=== PATIENT | male | born 1960 | race Caucasian/White ===

== ENCOUNTER 2016-09-07 11:35 | Emergency (ER) | payer OTHER ==
[~2016-09-07] VITALS: Ht 170.2 cm; Wt 105.0 kg
[~2016-09-07 11:35] MED LIST: ALBUAER3 INH; AMBI10TA PO; AMLO5TAB2 PO; ASPI81CH CHEW; ATOR20TA15 PO; HUMU70IN SQ; LISI10TA3 PO; LYRI150C PO; MEDR4PAK PO; PERC10TA27 PO; UMEC1AER INH; ZOFR4TAB PO
[2016-09-07 11:45] VITALS: BP 161/106; PULSE 92; RESP 20; TEMP 97.9; O2SAT 99
[2016-09-07] MEDS ORDERED: ONDANSETRON HCL 4 MG/2 ML VIAL ONE (12:21)
[2016-09-07] MEDS ORDERED: ONDANSETRON HCL 4 MG/2 ML VIAL IV PUSH ONE (12:30)
[2016-09-07] MEDS ORDERED: VIST50CA PO (12:35)
[2016-09-07] MEDS ORDERED: PRED20 PO (12:35)
[2016-09-07] MEDS ORDERED: EPIP0.3I SQ (12:35)
[2016-09-07] MEDS ORDERED: INSULIN HUMAN REGULAR 1,000 UNITS/10 ML VIAL SQ ONE (12:45)
[2016-09-07] MEDS ORDERED: FAMOTIDINE 20 MG/2 ML VIAL IV PUSH ONE (13:15)
--- NOTE | 2016-09-07 13:18 | PD ---
HPI Chief Complaint: Allergic/Adverse Reaction Time Seen by Provider: 13:12 Travel History International Travel<30 days: No Contact w/Intl Traveler<30days: No Traveled to known affect area: No History of Present Illness HPI 55-year-old male that presents to the ED for evaluation of allergic reaction. Patient comes here [facility] for evaluation of this. The patient his been ongoing for 3 days. Per patient he believes is related to use of off Brand Febreeze sprayer from [employer]. Per patient he spent is 3 days ago and he immediately noticed that he started having a itchy rash and swelling on his face. Per patient his been ongoing for 3 days and his been taking Benadryl with some minor relief. Per patient today his mother called the ambulance because his symptoms do not improve and he had more swelling. She states that he had a tingling in his throat. Patient was given epinephrine, Solu-Medrol, albuterol as well as Benadryl IV with resolution of most of his symptoms. Per patient he feels improved when I went to evaluate him. Per patient he still has a little bit of itching a rash but this all appears to be improving. He hasn't only to Xylocaine. He denies any recent changes in medications. No new soaps or clothes. No other new foods. No recent travel. No other injuries other medical complaints at this time. He is a diabetic and he does tell me that he did not use his insulin today. 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) Tetanus Vaccination: > 5 Years Influenza Vaccination: No ?: Not Past Surgical History Coronary Artery Bypass Graft: No Social History Alcohol Use: No Tobacco Use: No Substance Use: No Allergies-Medications (Allergen,Severity, Reaction): Coded Allergies: Xylocaine (Verified Allergy, Severe, Seizures, 03/22/16) Reported Meds & Prescriptions Reported Meds & Active Scripts Active Vistaril (Hydroxyzine Pamoate) 50 Mg Cap 50 Mg PO QID PRN Epipen 2-Delvin Inj (Epinephrine) 0.3 Mg/0.3 Ml Pfpen 0.3 Mg SQ ONCE PRN Prednisone 20 Mg Tab 20 Mg PO BID Zofran (Ondansetron HCl) 4 Mg Tab 4 Mg PO Q8HR PRN Medrol Dosepak (Methylprednisolone) 4 Mg Dspk 4 Mg PO DIRECTED Per Pharmacist direction Amlodipine (Amlodipine Besylate) 5 Mg Tab 5 Mg PO DAILY Aspirin 81 Mg Chew 81 Mg CHEW ONCE Reported Ambien (Zolpidem Tartrate) 10 Mg Tab 10 Mg PO HS PRN Atorvastatin (Atorvastatin Calcium) 20 Mg Tab 20 Mg PO DAILY Proair Hfa 8.5 GM Inh (Albuterol Sulfate) 90 Mcg/Act Aer 1-2 Puff INH Q4-6H PRN Anoro Ellipta Inh (Umeclidinium/Vilanterol) 62.5-25 Mcg/Act Aero 1 Puff INH DAILY Humulin 70-30 Inj (Insulin NPH Isophane-Reg (Human) 70-30 Inj) 1,000 Unit/10 Ml Vial 15 Units SQ DAILY IN THE PM Humulin 70-30 Inj (Insulin NPH Isophane-Reg (Human) 70-30 Inj) 1,000 Unit/10 Ml Vial 20 Units SQ DAILY IN THE AM Lisinopril 10 Mg Tab 10 Mg PO DAILY Percocet (Oxycodone-Acetaminophen) 10-325 mg Tab 1 Tab PO TID Lyrica (Pregabalin) 150 Mg Cap 150 Mg PO BID Review of Systems Except as stated in HPI: all other systems reviewed are Neg Physical Exam Narrative GENERAL: SKIN: Warm and dry. HEAD: Atraumatic. Normocephalic. EYES: Pupils equal and round 4 mm reactive to light and accommodation. No scleral icterus. No injection or drainage. ENT: No nasal bleeding or discharge. Mucous membranes pink and moist. Tongue is midline. No uvula deviation. No edema noted inside the mouth. NECK: Trachea midline. No JVD. CARDIOVASCULAR: Regular rate and rhythm. No murmurs, S3, S4. RESPIRATORY: No accessory muscle use. Clear to auscultation. Breath sounds equal bilaterally. GASTROINTESTINAL: Abdomen soft, non-tender, nondistended. Hepatic and splenic margins not palpable. MUSCULOSKELETAL: Extremities without clubbing, cyanosis, or edema. No obvious deformities. Full range of motion of the upper and lower extremities bilaterally. 2+ pulses bilaterally. NEUROLOGICAL: Awake and alert. No obvious cranial nerve deficits. Motor grossly within normal limits. Five out of 5 muscle strength in the arms and legs. Normal speech. PSYCHIATRIC: Appropriate mood and affect; insight and judgment normal. Data Data Last Documented VS Vital Signs Date Time Temp Pulse Resp B/P Pulse Ox O2 Delivery O2 Flow Rate FiO2 09/07/16 12:08 20 98 Room Air 09/07/16 11:45 97.9 92 161/106 Orders Ondansetron Inj (Zofran Inj) (09/07/16 12:30) Ondansetron Inj (Zofran Inj) (09/07/16 12:21) Insulin Human Regular Inj (Novolin R Inj (09/07/16 12:45) Famotidine Inj (Pepcid Inj) (09/07/16 13:15) Complete Blood Count With Diff (09/07/16 13:18) Basic Metabolic Panel (Bmp) (09/07/16 13:18) Magnesium (Mg) (09/07/16 13:18) Labs Laboratory Tests Test 09/07/16 13:20 White Blood Count 13.3 TH/MM3 Red Blood Count 5.14 MIL/MM3 Hemoglobin 14.8 GM/DL Hematocrit 46.3 % Mean Corpuscular Volume 90.0 FL Mean Corpuscular Hemoglobin 28.7 PG Mean Corpuscular Hemoglobin 31.9 % Concent Red Cell Distribution Width 13.3 % Platelet Count 256 TH/MM3 Mean Platelet Volume 9.6 FL Neutrophils (%) (Auto) 71.3 % Lymphocytes (%) (Auto) 20.2 % Monocytes (%) (Auto) 6.6 % Eosinophils (%) (Auto) 1.3 % Basophils (%) (Auto) 0.6 % Neutrophils # (Auto) 9.5 TH/MM3 Lymphocytes # (Auto) 2.7 TH/MM3 Monocytes # (Auto) 0.9 TH/MM3 Eosinophils # (Auto) 0.2 TH/MM3 Basophils # (Auto) 0.1 TH/MM3 CBC Comment DIFF FINAL Differential Comment Sodium Level 139 MEQ/L Potassium Level 4.3 MEQ/L Chloride Level 105 MEQ/L Carbon Dioxide Level 23.5 MEQ/L Anion Gap 11 MEQ/L Blood Urea Nitrogen 11 MG/DL Creatinine 1.24 MG/DL Estimat Glomerular Filtration 61 ML/MIN Rate Random Glucose 261 MG/DL Calcium Level 9.4 MG/DL Magnesium Level 1.7 MG/DL MDM Medical Decision Making Medical Screen Exam Complete: Yes Emergency Medical Condition: Yes Medical Record Reviewed: Yes Interpretation(s) CBC Diagram 09/07/16 13:20 Differential Diagnosis Allergic reaction versus anaphylaxis versus allergic dermatitis versus anxiety Narrative Course 55-year-old male that presents to the ED for evaluation of possible allergic reaction. Patient was properly examined and was found to have signs and symptoms of unclear etiology. Patient does appear to have had an allergic reaction. On my evaluation patient's improve and swelling that he was describing as well as most of the rash appears to be gone although he does appear to have some rash still. Patient is diabetic and his sugar was found to be 270 so he was given insulin here. Patient was told that he will be monitored for about an hour. Around 1310 the patient was reevaluated and he states that he is having some swelling in his face and he is starting to have some itching on his arms and legs. On my examination patient does not appear to have any new hives although his face does appear to be slightly swollen compared to my first examination. Patient was given Pepcid. 30 minutes later patient feels improved and wants to go home. My attending Dr. Guthrie evaluated the patient and agrees the patient can be safely discharged home. Patient will be discharged home with prescriptions for prednisone, EpiPen, Vistaril. Told to follow up with PCP. See ED worsening symptoms. All questions were answered to the best of my ability. Diagnosis Primary Impression: Allergic reaction to chemical substance Qualified Code: T65.91XA - Allergic reaction to chemical substance, accidental or unintentional, initial encounter Patient Instructions: General Instructions Additional Instructions: Take medications as prescribed. Only use EpiPen if he develops severe swelling , shortness of breath or severe allergic reaction. See ED for any worsening symptoms. Stay away from the Febreeze. Med/Other Pt SpecificInfo: Prescription(s) given Scripts Hydroxyzine Pamoate (Vistaril)50 Mg Cap50 Mg PO QID PRN (ITCHING) #20 CAP Ref 0 Prov:Rome Guthrie MD 09/07/16 Epinephrine Inj (Epipen 2-Delvin Inj)0.3 Mg/0.3 Ml Pfpen0.3 Mg SQ ONCE PRN ( ALLERGIC REACTION) #1 PACK Ref 0 Prov:Rome Guthrie MD 09/07/16 Prednisone 20 Mg Tab20 Mg PO BID #10 TAB Prov:Rome Guthrie MD 09/07/16 Disposition: 01 DISCHARGE HOME Condition: Stable Levy Boyce Sep 07, 2016 13:17
[2016-09-07 13:51] LABS: AUTOMATED NEUTROPHIL # 9.5 TH/MM3 (1.8-7.7); BASOPHIL # 0.1 TH/MM3 (0-0.2); BASOPHIL % 0.6 % (0.0-2.0); EOSINOPHIL # 0.2 TH/MM3 (0-0.4); EOSINOPHIL % 1.3 % (0.0-4.0); HEMATOCRIT 46.3 % (39.0-51.0); HEMO FLAGS DIFF FINAL; LYMPH % 20.2 % (9.0-44.0); LYMPHOCYTE # 2.7 TH/MM3 (1.0-4.8); MEAN CORPUSCULAR HEMOGLOBIN 28.7 PG (27.0-34.0); MEAN CORPUSCULAR HGB CONC 31.9 % (32.0-36.0); MONO % 6.6 % (0.0-8.0); NEUT % 71.3 % (16.0-70.0); PLATELET COUNT 256 TH/MM3 (150-450); RED BLOOD COUNT 5.14 MIL/MM3 (4.50-5.90); RED CELL DISTRIBUTION WIDTH 13.3 % (11.6-17.2); WHITE BLOOD COUNT 13.3 TH/MM3 (4.0-11.0)
[2016-09-07 14:13] LABS: BICARBONATE 23.5 MEQ/L (21.0-32.0); MAGNESIUM 1.7 MG/DL (1.5-2.5); POTASSIUM 4.3 MEQ/L (3.5-5.1)
--- NOTE | 2016-09-07 14:19 | PD ---
Data Data Last Documented VS Vital Signs Date Time Temp Pulse Resp B/P Pulse Ox O2 Delivery O2 Flow Rate FiO2 09/07/16 14:27 85 18 154/88 98 09/07/16 12:08 Room Air 09/07/16 11:45 97.9 Orders Ondansetron Inj (Zofran Inj) (09/07/16 12:30) Ondansetron Inj (Zofran Inj) (09/07/16 12:21) Insulin Human Regular Inj (Novolin R Inj (09/07/16 12:45) Famotidine Inj (Pepcid Inj) (09/07/16 13:15) Complete Blood Count With Diff (09/07/16 13:18) Basic Metabolic Panel (Bmp) (09/07/16 13:18) Magnesium (Mg) (09/07/16 13:18) Labs Laboratory Tests Test 09/07/16 13:20 White Blood Count 13.3 TH/MM3 Red Blood Count 5.14 MIL/MM3 Hemoglobin 14.8 GM/DL Hematocrit 46.3 % Mean Corpuscular Volume 90.0 FL Mean Corpuscular Hemoglobin 28.7 PG Mean Corpuscular Hemoglobin 31.9 % Concent Red Cell Distribution Width 13.3 % Platelet Count 256 TH/MM3 Mean Platelet Volume 9.6 FL Neutrophils (%) (Auto) 71.3 % Lymphocytes (%) (Auto) 20.2 % Monocytes (%) (Auto) 6.6 % Eosinophils (%) (Auto) 1.3 % Basophils (%) (Auto) 0.6 % Neutrophils # (Auto) 9.5 TH/MM3 Lymphocytes # (Auto) 2.7 TH/MM3 Monocytes # (Auto) 0.9 TH/MM3 Eosinophils # (Auto) 0.2 TH/MM3 Basophils # (Auto) 0.1 TH/MM3 CBC Comment DIFF FINAL Differential Comment Sodium Level 139 MEQ/L Potassium Level 4.3 MEQ/L Chloride Level 105 MEQ/L Carbon Dioxide Level 23.5 MEQ/L Anion Gap 11 MEQ/L Blood Urea Nitrogen 11 MG/DL Creatinine 1.24 MG/DL Estimat Glomerular Filtration 61 ML/MIN Rate Random Glucose 261 MG/DL Calcium Level 9.4 MG/DL Magnesium Level 1.7 MG/DL [facility] Supervised Visit with CHRIS: Yes Narrative Course Patient is a 55-year-old male presents emergency department for a several day history of allergic reaction to some chemical substance. Patient has told nursing and Levy Boyce that he would like to go home, he was examined by me and has no airway swelling no difficulty breathing, no rash that I can see at this point. Neville Boyce has documented a minimal hives but appears to be resolved, discussed with the patient symptomatic management home signs symptoms that should prompt emergent return to the ER as well as signs symptoms that should prompt calling 911. Follow up with primary care physician. He is stable for discharge. Diagnosis Primary Impression: Allergic reaction to chemical substance Qualified Code: T65.91XA - Allergic reaction to chemical substance, accidental or unintentional, initial encounter Patient Instructions: General Instructions Additional Instruction: Take medications as prescribed. Only use EpiPen if he develops severe swelling , shortness of breath or severe allergic reaction. See ED for any worsening symptoms. Stay away from the Febreeze. Scripts Hydroxyzine Pamoate (Vistaril)50 Mg Cap50 Mg PO QID PRN (ITCHING) #20 CAP Ref 0 Prov:Rome Guthrie MD 09/07/16 Epinephrine Inj (Epipen 2-Delvin Inj)0.3 Mg/0.3 Ml Pfpen0.3 Mg SQ ONCE PRN ( ALLERGIC REACTION) #1 PACK Ref 0 Prov:Rome Guthrie MD 09/07/16 Prednisone 20 Mg Tab20 Mg PO BID #10 TAB Prov:Rome Guthrie MD 09/07/16 Disposition: 01 DISCHARGE HOME Condition: Stable Rome Guthrie MD Sep 07, 2016 14:19
[2016-09-07 14:27] VITALS: BP 154/88
== END 2016-09-07 14:28 | disposition home or self-care (01) ==
LOC: NEPE 11:35
DX: T65.91XA Toxic effect of unspecified substance, accidental (unintentional), initial encounter (principal); E11.9 Type 2 diabetes mellitus without complications; I10 Essential (primary) hypertension; Z79.4 Long term (current) use of insulin; Z79.899 Other long term (current) drug therapy
CPT/HCPCS: 80048; 83735; 85025; 96372; 96374; 96375; 99284; J1815; J2405